=== PATIENT | female | born 1975 | race Caucasian/White ===

== ENCOUNTER → 2020-04-27 02:25 | Outpatient (CLI) | payer OTHER, SELFPAY ==
[2020-04-27 22:46] LABS: SARS-CoV-2 RNA PCR Negative
== END ==
PROVIDERS: Visit Provider Obstetrics & Gynecology
DX: Z01.812 Encounter for preprocedural laboratory examination (principal); Z20.822 Contact with and (suspected) exposure to COVID-19
CPT/HCPCS: C9803; U0003; U0005

== ENCOUNTER 2020-04-27 08:11 | Outpatient (CLI) | payer OTHER, SELFPAY ==
[2020-04-27 08:31] LABS: Basophils Absolute Auto 0.1 K/mm3 (0.0-0.1); Basophils Percent Auto 0.7 % (0.2-1.2); Eosinophils Absolute Auto 0.7 K/mm3 (0-0.3); Hematocrit 40.2 % (37.0-47.0); Hemoglobin 12.7 g/dL (12.0-15.0); Immature Granulocyte Absolute 0.02 K/mm3 (0.00-0.031); Immature Granulocyte Percent A 0.3 % (0-0.5); Lymphocytes Absolute Auto 1.36 K/mm3 (0.9-3.2); Lymphocytes Percent Auto 19.7 % (18.3-44.2); Mean Corpuscular HGB Conc 31.6 g/dl (32-36); Mean Corpuscular Hemoglobin 28.4 pg (26-34); Mean Corpuscular Volume 89.9 fl (80-100); Mean Platelet Volume 10.2 fl (7.4-10.4); Monocytes Absolute Auto 0.5 K/mm3 (0.1-0.6); Neutrophils Absolute Auto 4.3 K/mm3 (1.3-6.7); Neutrophils Percent Auto 62.3 % (45.5-73.1); Platelet Count Result 256 k/mm3 (150-375); Red Blood Count 4.47 M/mm3 (4.2-5.4); Red Cell Distribution Width 14.4 % (11.5-14.5); White Blood Count 6.9 K/mm3 (4.5-10.0)
== END 2020-04-27 08:12 | disposition home or self-care (01) ==
LOC: ANHSURGERY 08:13
PROVIDERS: Visit Provider Obstetrics & Gynecology
DX: Z01.812 Encounter for preprocedural laboratory examination (principal); R10.2 Pelvic and perineal pain
CPT/HCPCS: 36415; 85025; 86850; 86900; 86901

== ENCOUNTER 2020-04-30 00:44 | Day surgery (SDC) | payer OTHER, SELFPAY ==
[2020-04-22 15:28] VITALS: BMI 30.8
--- NOTE | 2020-04-27 11:20 | P.HP_ITS ---
H&P: HPI History of Present Illness Date/Time: 04/27/20 11:20 Chief Complaint: uterine prolapse and fibroids Narrative: Miguelina Marks is a 44 year old female admitted for robotic total CLAUDIO correctly and bilateral salpingectomy she has had pain and discomfort and has symptomatic uterine fibroids with a second- degree prolapse. Ultrasound proven enlarged uterus she wants definitive therapy and agrees to venous proceed. Risks and benefits of this procedure reviewed including not exclusive of aspiration pneumonia bleeding, transfusion, perforation bowel bladder, ureters or other internal organs with need for open laparotomy. She was good understanding. She received the [employer] handout entitled hysterectomy as well as the div in she handout. She had all questions answered and asked to proceed Review of Systems Review of Systems: All systems reviewed & are unremarkable except as noted in HPI and below PMFSH Social History Social History Smoking status: Never smoker Substance use: never Substance use type: does not use Gender identity (if verbalized by the patient): Female Spiritual care concerns: No Meds Home Medications and Allergies Home Medications Medication Instructions Recorded Confirmed Type albuterol sulfate 1 mg INHALATION DAILY 04/22/20 04/22/20 History fluticasone furoate [Arnuity 1 inh INHALATION DAILY 04/22/20 04/22/20 History Ellipta] montelukast 10 mg PO DAILY 04/22/20 04/22/20 History Allergies Allergy/AdvReac Type Severity Reaction Status Date / Time No Known Allergies Allergy Unverified 04/22/20 15:30 Exam Const: General: no acute distress Eyes: General: appearance normal, both eyes and all related structures Neck: Neck: supple and no JVD Thyroid: thyroid normal Resp: Effort & Inspection: normal respiratory effort Auscultation: clear to auscultation bilaterally Cardio: Rate: regular rate Rhythm: regular rhythm GI: Inspection: non-distended GI Palp: Yes Soft to palpation, No Tenderness to palpation present (GI) and No Guarding due to palpation present (GI) Auscultation: normal bowel sounds : General: Yes bladder normal to inspection External Female Exam: normal external appearance Speculum Exam - Vagina: normal appearance of the vagina Speculum Exam - Cervix: normal appearance of the cervix and Cervical os closed ( second-degree prolapse present) Bimanual exam- vagina & uterus: enlarged Bimanual Exam- Adnexa, other: no masses Skin: General skin exam: no rashes or lesions noted Extrem: General: normal to inspection and no edema Psych: Mental Status: mental status grossly normal Affect: normal affect Assessment and Plan Additional Plan impression: Symptomatic uterine fibroids with uterine prolapse Plan: Robotic total vaginal hysterectomy and bilateral salpingectomy
[2020-04-30] VITALS (10 sets, daily range): BP systolic 138–166; BP diastolic 74–95; PULSE 46–96; RESP 11–20; TEMP 36.1–37.2; O2SAT 96–100
[2020-04-30] MEDS: ACETAMINOPHEN 500 MG TABLET 1000 MG PO (06:12)
--- NOTE | 2020-04-30 06:28 | WPDHPUPDATE1 ---
History and Physical Update Update Date/Time: 04/30/20 06:28 History and Physical has been reviewed, including an updated exam of the patient. There are NO changes in the patient's condition. Risks, benefits, and alternatives have been discussed and questions answered. Patient agrees to proceed with procedure.
[2020-04-30] MEDS: LACTATED RINGERS 1,000 ML 30 ML IV CONT ×2 (06:45→08:53)
[2020-04-30] MEDS: KETOROLAC 15 MG/ML VIAL (*BKC) IV PUSH (06:50)
--- NOTE | 2020-04-30 07:04 | WPDANESEPPF ---
Anes - Initial Pre Proc Eval Procedure: Operation Date: 04/30/20 07:30 Proposed Procedures p Robotic Assisted Total Vaginal Hysterectomy with Bilateral Salpingectomy - Se Rey MD Date/Time: 04/30/20 07:04 Surgeon: Se Rey MD Pre Op Diagnosis: enlarge uterus, pelvic pain, bleeding, fibroids Patient Data Age: 44 Gender: F Height: 1.65 m Weight: 85.9 kg Last Vital Signs Temp 36.9 C 04/30/20 06:51 Pulse 57 L 04/30/20 06:51 Resp 16 04/30/20 06:51 BP 138/87 04/30/20 06:51 Pulse Ox 100 04/30/20 06:51 Allergies Allergy/AdvReac Type Severity Reaction Status Date / Time No Known Allergies Allergy Verified 04/30/20 06:08 Home Medications Medication Instructions Recorded Confirmed Type albuterol sulfate 1 mg INHALATION DAILY 04/22/20 04/22/20 History fluticasone furoate [Arnuity 1 inh INHALATION DAILY 04/22/20 04/30/20 History Ellipta] montelukast 10 mg PO DAILY 04/22/20 04/30/20 History hydrocodone-acetaminophen 1 tablet PO Q6H PRN #30 tablet 04/30/20 Rx Laboratory Tests 04/30/20 06:39 Beta HCG, Quant Pending Patient hx anesthesia problems: none Family hx anesthesia problems: none PMFSH Past Medical History Medical History (Updated 04/30/20 @ 07:05 by Jimy Baum MD) Asthma Obesity ANABELA on CPAP Social History Social History Smoking status: Never smoker Substance use: never Substance use type: does not use Living arrangements: with family Gender identity (if verbalized by the patient): Female Spiritual care concerns: No Anes - Eval Final PreProcedure Day of Procedure 04/30/20 07:04 Patient weight: obese Heart: regular rate and rhythm Lungs: clear to auscultation and normal air movement Airway: Mallampati scale class II Neurological: alert and oriented Last oral intake: >/= 8 hours ASA classification: II Emergent: no Anesthetic plan: proceed Anesthesia type and monitoring: general Informed Consent: The patient's anesthetic plan and its attendant risks and benefits were discussed with the patient/family/POA. Questions were solicited and answers provided to the satisfaction of the patient/family/POA.
[2020-04-30 07:18] LABS: Beta HCG Quantitative < 2.39 mIU/ML
[2020-04-30] MEDS: ceFAZolin 2 GM/D5W 50 ML 2 GM/50 ML BAG IVPB (07:23)
--- NOTE | 2020-04-30 08:44 | PM.PROC ---
Procedure Note - Detailed Date of procedure: 04/30/20 Pre-op diagnosis: enlarge uterus, pelvic pain, bleeding, fibroids Surgeon: Se Rey MD Postop diagnosis: Enlarged uterus, pelvic pain, bleeding, uterine fibroids Procedure: Robotic total vaginal hysterectomy and bilateral salpingectomies Anesthesia: General endotracheal EBL: 25cc Complications: None Findings: Markedly enlarged uterus. Normal-appearing ovaries and tubes bilaterally. Description of procedure: The patient was prepped draped in normal sterile fashion placed in the dorsal lithotomy position. Under excellent general endotracheal anesthesia weighted speculum was placed in the posterior fornix of vagina. Anterior lip of the cervix grasped with a single-tooth tenaculum and the uterus sounded to 11-1/2cm. Serial dilatation with fragmented dilators performed followed by passage of the 10. SHINE and the 3. And half cold cup. Next the 16 [place] catheter was placed sterilely in the bladder and drained clear urine. The remainder the instruments removed and the gloves were changed. A supraumbilical incision made in the [place] needle passed in the abdomen. Abdomen was filled with CO2 gas [id number]. The 8mm trocar advanced in the abdomen. The downside visualized no injury seen. The patient placed in Trendelenburg and right left lateral quadrant incisions made. The 8mm trocars were advanced under direct visualization assuring no injury. A right upper quadrant incision made 8mm trocar advanced under direct visualization assuring no injury. The robot was docked. Attention was turned to the counseling center director. The uterus was noted be large and full fibroids. The ovaries and tubes appeared grossly within normal limits. The left round ligament was grasped, burned, cut. Anteriorly a bladder flap was formed by sharply dissecting the bladder and pushing this caudally away from the cervix and uterus to the opposite round ligament which was clamped, burned, cut. Next the left tube was dissected using monopolar cautery away from the ovarian complex to be taken with the specimen. This was repeated in like fashion on the right. Conserving left ovary the utero-ovarian ligament was skeletonized. This was clamped, burned, cut and brought to the level of previously cut round ligament. Conserving the right ovary the utero-ovarian ligament was clamped, burned, cut and brought to the level of the previously cut round ligament. Next the cardinal broad ligaments on the left were serially skeletonized. These were clamped, burned, cut and brought down to the level of the uterine vessels. The each uterine vessel was serially skeletonized. Clamped, burned, cut until good desiccation was noted. In like fashion on the right the cardinal broad ligaments were skeletonized these were serially clamped, burned, cut until the uterine vessels could be seen. Each vessel was serially skeletonized clamped, burned, cut. Blanching of the uterus was noted in a colpotomy incision was made. Occult the uterus cervix and tubes removed through the vagina. The vagina was then closed with continuous running 0V lock from lateral edge to lateral edge back to the midline. Irrigation undertaken to clear and [place] term placed over the raw surface area. Blood loss estimated 25cc the robot was undocked. The gas removed from the abdomen. The incisions closed with 4 Monocryl and glue. Patient was awakened. All sponge, needle, instrument counts were correct. Patient went recovery in satisfactory condition. There were no immediate complications
--- NOTE | 2020-04-30 09:48 | SUR.PHASEI ---
[id number] FAXED TO [facility].
--- NOTE | 2020-04-30 10:15 | PC.NURSE ---
This patient, Miguelina Marks, was received from PACU on 04/30/20 at 1015 via bed. Patient oriented to unit policies and routines
[2020-04-30] MEDS: DEXTROSE 5%/LACTATED RINGERS 1,000 ML 125 ML IV CONT (10:37)
[2020-04-30] MEDS: KETOROLAC 30 MG/ML VIAL (*BKC) IV PUSH (10:43)
[2020-04-30] MEDS: ONDANSETRON INJ 4 MG/2 ML VIAL IV PUSH (13:43)
[2020-04-30] MEDS: DOCUSATE SODIUM 100 MG CAPSULE PO (17:15)
[2020-04-30] MEDS: HYDROcodone/acetaminophen (*CRX) 10-325 MG TABLET 1 TAB PO (17:15)
[2020-05-01] VITALS: BP 139/70; PULSE 82; RESP 18; TEMP 36.7; O2SAT 97
[2020-05-01] MEDS: IBUPROFEN 600 MG TABLET PO (04:56)
[2020-05-01 05:00] VITALS: BP 135/79; PULSE 71; RESP 18; TEMP 37; O2SAT 96
[2020-05-01 05:30] LABS: Basophils Percent Auto 0.1 % (0.2-1.2); Eosinophils Percent Auto 0.1 % (0-4.4); Hematocrit 38.4 % (37.0-47.0); Hemoglobin 12.2 g/dL (12.0-15.0); Immature Granulocyte Absolute 0.08 K/mm3 (0.00-0.031); Immature Granulocyte Percent A 0.6 % (0-0.5); Mean Corpuscular HGB Conc 31.8 g/dl (32-36); Mean Corpuscular Hemoglobin 28.4 pg (26-34); Mean Corpuscular Volume 89.5 fl (80-100); Mean Platelet Volume 10.9 fl (7.4-10.4); Monocytes Percent Auto 6.8 % (2.6-8.5); Neutrophils Absolute Auto 11.6 K/mm3 (1.3-6.7); Neutrophils Percent Auto 82.4 % (45.5-73.1); Platelet Count Result 257 k/mm3 (150-375); Red Blood Count 4.29 M/mm3 (4.2-5.4); Red Cell Distribution Width 14.6 % (11.5-14.5)
[2020-05-01] MEDS: DOCUSATE SODIUM 100 MG CAPSULE PO (07:42)
[2020-05-01] MEDS: ENOXAPARIN 40 MG/0.4 ML SYRINGE SUB-Q (07:44)
[2020-05-01 07:50] VITALS: BP 146/83; PULSE 76; RESP 18; TEMP 36.6
--- NOTE | 2020-05-01 08:08 | PM.DS ---
DS: Admitting Diagnosis Admitting Diagnosis Admitting Diagnosis: pain/bleeding/enlarged uterus DS: Summary Hospital Course Hospital Course: The patient was admitted for robotic hysterectomy and bilateral salpingectomy. The patient's hospital course was unremarkable. She remained afebrile. She was up, voiding without difficulty, eating, passing gas, and general without complaints. Time Spent with Patient Time attestation: Total time spent providing and/or coordinating discharge services: Exam Const: General: no acute distress Eyes: General: appearance normal, both eyes and all related structures Neck: Neck: supple and no JVD Thyroid: thyroid normal Resp: Effort & Inspection: normal respiratory effort Auscultation: clear to auscultation bilaterally Cardio: Rate: regular rate Rhythm: regular rhythm GI: Inspection: non-distended GI Palp: Yes Soft to palpation, No Tenderness to palpation present (GI) and No Guarding due to palpation present (GI) Auscultation: normal bowel sounds : General: Yes bladder normal to palpation External Female Exam: normal external appearance Speculum Exam - Vagina: normal vaginal discharge and No vaginal bleeding Speculum Exam - Cervix: nontender Bimanual exam- vagina & uterus: bladder normal to palpation and No Cervical tenderness present OB/external & speculum: No vaginal bleeding Skin: General skin exam: no rashes or lesions noted Extrem: General: normal to inspection and no edema Psych: Mental Status: mental status grossly normal Affect: normal affect DS: Data Data Completed and Pending Pending studies at discharge: Pending at discharge 04/30/20 08:27 Surgical [PTH] Routine Labs on day of discharge: Labs from last 24 hours 05/01/20 05:09 WBC 14.0 H RBC 4.29 Hgb 12.2 Hct 38.4 MCV 89.5 MCH 28.4 MCHC 31.8 L RDW 14.6 H Plt Count 257 MPV 10.9 H Immature Gran % (Auto) 0.6 H Neut % (Auto) 82.4 H Lymph % (Auto) 10.0 L [place] % (Auto) 6.8 Eos % (Auto) 0.1 Baso % (Auto) 0.1 L Lymph # (Auto) 1.40 [place] # (Auto) 1.0 H Eos # (Auto) 0.0 Baso # (Auto) 0.0 Abs Immat Gran (auto) 0.08 H Absolute Neuts (auto) 11.6 H Absolute Nucleated RBC 0.0 Nucleated RBC % 0.0 Discharge Plan Discharge Patient Disposition: Home, Self-Care Stand Alone Forms: General Discharge Instructions Follow-up/Referrals: Se Rey MD [Physician] - Discharge Medications: New hydrocodone-acetaminophen 5-300 mg tablet 1 tablet PO Q6H PRN (Reason: pain) Qty: 30 RF: 0 No Action albuterol sulfate 2.5 mg /3 mL (0.083 %) solution for nebulization 1 mg inhalation DAILY RF: 0 montelukast 10 mg tablet 10 mg PO DAILY RF: 0 Arnuity Ellipta 100 mcg/actuation blister with device 1 inh INHALATION DAILY RF: 0
--- NOTE | 2020-05-01 08:11 | PM.OBPNVD ---
OB - PN: Subj Subjective Date/time seen: 05/01/20 08:11 Patient comments: no complaints and pain well controlled OB - PN: Obj Data Labs CBC & Chem 7: 05/01/20 05:09 Labs: Laboratory Results - last 24 hr 05/01/20 05:09 WBC 14.0 H RBC 4.29 Hgb 12.2 Hct 38.4 MCV 89.5 MCH 28.4 MCHC 31.8 L RDW 14.6 H Plt Count 257 MPV 10.9 H Immature Gran % (Auto) 0.6 H Neut % (Auto) 82.4 H Lymph % (Auto) 10.0 L [place] % (Auto) 6.8 Eos % (Auto) 0.1 Baso % (Auto) 0.1 L Lymph # (Auto) 1.40 [place] # (Auto) 1.0 H Eos # (Auto) 0.0 Baso # (Auto) 0.0 Abs Immat Gran (auto) 0.08 H Absolute Neuts (auto) 11.6 H Absolute Nucleated RBC 0.0 Nucleated RBC % 0.0 OB - PN A/P Plan day: 1 Plan: routine care, discharge home and follow up 6 weeks (2 weeks) Time Spent With Patient Time: Total time spent is greater than 50% in coordination of care (as documented) at patient's floor/unit and/or counseling patient: Time with patient: less than 15 minutes Review of Systems Review of Systems: All systems reviewed & are unremarkable except as noted in HPI and below Exam Const: General: no acute distress Eyes: General: appearance normal, both eyes and all related structures Neck: Neck: supple and no JVD Thyroid: thyroid normal Resp: Effort & Inspection: normal respiratory effort Auscultation: clear to auscultation bilaterally Cardio: Rate: regular rate Rhythm: regular rhythm GI: Inspection: normal to inspection and incision (cdi) Percussion: Yes normal to percussion Auscultation: normal bowel sounds : General: Yes bladder normal to palpation External Female Exam: normal external appearance Speculum Exam - Vagina: normal vaginal discharge and No vaginal bleeding Speculum Exam - Cervix: nontender Bimanual exam- vagina & uterus: bladder normal to palpation and No Cervical tenderness present OB/external & speculum: No vaginal bleeding Skin: General skin exam: no rashes or lesions noted Extrem: General: normal to inspection and no edema Psych: Mental Status: mental status grossly normal Affect: normal affect
== END 2020-05-01 09:00 | disposition home or self-care (01) ==
LOC: ANHSURGERY 06:01 → ANHOB2 10:13
PROVIDERS: Anesthesiology; Visit Provider Obstetrics & Gynecology
PROC: (CPT 58552; principal; 2020-04-30 07:30)
DX: D25.1 Intramural leiomyoma of uterus (principal); N83.8 Other noninflammatory disorders of ovary, fallopian tube and broad ligament; R10.2 Pelvic and perineal pain; N93.9 Abnormal uterine and vaginal bleeding, unspecified
CPT/HCPCS: 58552; S2900; 36415; 84702; 85025; 86850; 86900; 86901; 88307; 99199; A9270; C9803; J0690; J1100; J1650; J1885; J2250; J2405; J2704; J2710; J3010; J7030; J7120; J7121; U0003; U0005